=== PATIENT | female | born 1985 | race Caucasian/White ===

== ENCOUNTER 2022-08-28 20:19 | Emergency (ER) | payer OTHER, SELFPAY ==
[2022-08-28 20:26] VITALS: BP 138/84; PULSE 76; RESP 14; TEMP 36.4; O2SAT 100; BMI 22.4
--- NOTE | 2022-08-28 20:55 | ED_ITS ---
HPI - Back Pain/Injury General: Chief Complaint: Back Pain/Injury Stated Complaint: Back Pain Time Seen by Provider: 08/28/22 20:53 History of Present Illness: 36-year-old female day was playing with her family and was being swung around by one of the family members when her back was twisted wrong. Since then patient has been trying to manage the pain with [id number] medication but has had worsening pain and discomfort over the past 2 to 3 days. Patient appears in moderate pain. Patient appears no acute distress. Patient does have a history of intervertebral disc disease and surgical intervention. Associated symptoms: Deny fever(s) Review of Systems General: Reports: 10 or more systems reviewed and unremarkable except in HPI and below Const: Denies: fever(s) Musc: Reports: back pain Physical Exam Const: COMMON NORMALS: alert HENMT: COMMON NORMALS: normocephalic HEAD & SCALP: normocephalic Neck/C-Spine: COMMON NORMALS: full ROM Resp: COMMON NORMALS: normal respiratory effort Cardio: COMMON NORMALS: regular rate RATE: regular rate Back/Pelvis: LUMBAR SPINE/LOWER BACK: No lumbar spinal tenderness and Yes paraspinal muscle tenderness (Right lower back) Extremity: COMMON NORMALS: normal to inspection Neuro: SENSORIUM/ORIENTATION: Yes alert Skin: COMMON NORMALS: turgor normal GENERAL SKIN EXAM: turgor normal Course Vital Signs: Vital signs: Vital Signs Temperature 97.5 F L 08/28/22 20:26 Pulse Rate 76 08/28/22 20:26 Respiratory Rate 14 08/28/22 20:26 Blood Pressure 138/84 08/28/22 20:26 Pulse Oximetry 100 08/28/22 20:26 Oxygen Delivery Me thod Room Air 08/28/22 20:26 MDM - Back Pain/Injury Medical Decision Making 36-year-old female comes in today with pain to the right lower back. On exam she has tenderness to the right lower paraspinous muscles with tightness. No cervical, thoracic, or lumbar spinal tenderness is noted with percussion. Differential diagnosis includes lumbar strain, intervertebral disc disease, facet arthropathy. Patient was given a dose of hydrocodone and Toradol inje ctions in the emergency room for her pain. Patient be continued on hydrocodone and tizanidine to help with pain control. Patient was recommended to follow-up with primary care for persistent symptoms and return to the ER as needed. Discharge Plan Discharge Patient Disposition: Home Clinical Impression: Strain of lumbar region Qualifiers: Encounter type: initial encounter Qualified Code(s): S39.012A - Strain of muscle, fascia and tendon of lower back, initial encounter Condition: Stable Prescriptions: New hydrocodone-acetaminophen 5-325 mg tablet 1 tab PO Q6H PRN (Reason: pain (scale score 7-10)) Qty: 12 0RF tizanidine 4 mg tablet 4 mg PO Q8H PRN (Reason: muscle spasticity) Qty: 15 0RF Discharge Orders: Discharge ED (Routine); Ordered 08/28/22 Ordered By: Hector Reyna Discharge Diet: Usual diet Discharge Activity: Increase activity as tolerated Patient Instructions: Back Pain (ED), Opioid Safety, Pain Management Activity Restrictions/Additional Instructions: Use acetaminophen and ibuprofen to control pain. Use hydrocodone for severe pain. Use tizanidine for muscle spasms. Drink plenty of water with medication. Try to maintain normal activity is much as possible. Follow-up with primary care for further instructions. Return to ED for new concerns. Coding Level of Care Code ED Facility Coordinator for Terry Contreras
[2022-08-28] MEDS: ketorolac 30 mg/mL INJ IM (21:31)
[2022-08-28] MEDS: HYDROcodone-acetaminophen 10-325 mg Tablet 1 TAB PO (21:31)
== END 2022-08-28 21:37 | disposition home or self-care (01) ==
PROVIDERS: Emergency Provider Nurse Practitioner Family
DX: S39.012A Strain of muscle, fascia and tendon of lower back, initial encounter (principal); X50.1XXA Overexertion from prolonged static or awkward postures, initial encounter; Y93.89 Activity, other specified; Y92.9 Unspecified place or not applicable
CPT/HCPCS: 96372; 99284; J1885